=== PATIENT | male | born 1985 | race Caucasian/White ===

== ENCOUNTER 2016-11-17 15:09 | Inpatient (IN) | payer SELFPAY ==
[~2016-11-17] VITALS: Ht 170.2 cm; Wt 66.7 kg
[2016-11-17] MEDS ORDERED: PANTOPRAZOLE SODIUM 40 MG/VIAL IV STA (15:25)
[2016-11-17] MEDS ORDERED: ONDANSETRON HCL 4MG/2ML VIAL IV STA (15:25)
[2016-11-17] MEDS ORDERED: SODIUM CHLORIDE 0.9% 1,000 ML IV ONE ×2 (15:25)
[2016-11-17] MEDS ORDERED: OCTREOTIDE ACETATE 50 MCG/ML 1ML IV ONE (15:30)
[2016-11-17] MEDS ORDERED: PANTOPRAZOLE 80 MG in SODIUM CHLORIDE 0.9% 80 ML IV ONE (15:30)
[2016-11-17] MEDS ORDERED: OCTREOTIDE 1,000 MCG in SODIUM CHLORIDE 0.9% 100 ML IV ONE (15:30)
[2016-11-17] MEDS ORDERED: PANTOPRAZOLE SODIUM 40 MG/VIAL IV ONE (15:56)
[2016-11-17 15:57] LABS: BASOPHILS % 1.9 % (0.0-2.0); HEMATOCRIT. 37.9 % (42.0-52.0); HEMOGLOBIN. 13.3 g/dL (14.0-18.0); LYMPHOCYTES % 50.3 % (20.0-50.0); MEAN CORPUSCULAR HEMOGLOBIN 32.7 pg (28.0-32.0); MEAN CORPUSCULAR VOLUME 93.4 fL (80.0-94.0); MEAN PLATELET VOLUME 8.3 fl (7.4-10.4); MONOCYTES % 8.6 % (2.0-8.0); NEUTROPHILS % 37.2 % (40.0-76.0); PLATELET 295 x1000/uL (130-400); RED BLOOD CELL COUNT 4.06 mill/uL (4.7-6.1); RED CELL DISTRIBUTION WIDTH 14.9 % (11.6-14.6)
[2016-11-17 16:05] LABS: CHLORIDE 104 mEq/L (98-107)
[2016-11-17 16:06] LABS: INR 1.1; PROTHROMBIN TIME 11.7 sec (9.4-11.6)
[2016-11-17 16:09] LABS: CARBON DIOXIDE 23 mEq/L (21-32); ETHANOL BLOOD 282 mg/dL
[2016-11-17 16:14] LABS: CREATINE KINASE 132 IU/L (39-308); TROPONIN I < 0.02 ng/mL (0.00-0.04)
[2016-11-17] MEDS ORDERED: OCTREOTIDE 1000MCG in SODIUM CHLORIDE 0.9% 100ML IV NR (18:30)
[2016-11-17] MEDS ORDERED: MORPHINE SULFATE 4 MG/ML CPJ (NOT FOR IM USE) IV ONE (19:15)
[2016-11-17] MEDS ORDERED: ONDANSETRON HCL 4MG/2ML VIAL IV ONE (19:15)
[2016-11-17] MEDS ORDERED: THIAMINE HCL 100 MG in SODIUM CHLORIDE 0.9% 49 ML IV NR (20:30)
[2016-11-17] MEDS ORDERED: POTASSIUM CHLORIDE INJ 40 MEQ in DEXT 5% WATER 250 ML IV NR (20:30)
[2016-11-17] MEDS ORDERED: ONDANSETRON HCL 4MG/2ML VIAL IV PRN (20:30)
[2016-11-17] MEDS ORDERED: DIPHENHYDRAMINE 50MG/ML VIAL IV PRN (20:30)
[2016-11-17 22:38] VITALS: BP 96/55
[2016-11-17] MEDS: SODIUM CHLORIDE 0.9% 1,000 ML IV SCH (23:26)
[2016-11-17] MEDS: PANTOPRAZOLE SODIUM 40 MG/VIAL IV SCH (23:26)
[2016-11-18] VITALS (8 sets, daily range): BP systolic 84–114; BP diastolic 45–66
[2016-11-18 05:20] LABS: CLARITY URINE CLEAR (CLEAR); COLOR URINE YELLOW (YELLOW); GLUCOSE URINE NEGATIVE (NEGATIVE); KETONES URINE NEGATIVE (NEGATIVE); LEUKOCYTE ESTERASE URINE NEGATIVE (NEGATIVE); NITRITE URINE NEGATIVE (NEGATIVE); OCCULT BLOOD URINE NEGATIVE (NEGATIVE); PROTEIN URINE NEGATIVE (NEGATIVE); UROBILINOGEN URINE 0.2 E.U./dL (0.2-1.0)
[2016-11-18] MEDS: SODIUM CHLORIDE 0.9% 1,000 ML IV SCH ×4 (05:33→23:29)
[2016-11-18 06:28] LABS: *AMPHETAMINES SCREEN URINE NEGATIVE (NEGATIVE); *BARBITURATES SCREEN URINE NEGATIVE (NEGATIVE); *BENZODIAZEPINES SCREEN URINE NEGATIVE (NEGATIVE); *COCAINE SCREEN URINE NEGATIVE (NEGATIVE); CANNABINOID URINE SCREEN NEGATIVE (NEGATIVE); METHADONE URINE SCREEN NEGATIVE (NEGATIVE); OPIATES URINE SCREEN PRESUMTIVE POSITIVE (NEGATIVE); PHENCYCLIDINE URINE SCREEN NEGATIVE (NEGATIVE)
[2016-11-18 07:37] LABS: BASOPHILS % 0.8 % (0.0-2.0); EOSINOPHILS % 1.7 % (0.0-5.0); HEMATOCRIT. 31.2 % (42.0-52.0); HEMOGLOBIN. 10.9 g/dL (14.0-18.0); LYMPHOCYTES % 31.8 % (20.0-50.0); MEAN CORPUSCULAR HEMOGLOBIN 32.9 pg (28.0-32.0); MEAN CORPUSCULAR VOLUME 94.5 fL (80.0-94.0); MEAN PLATELET VOLUME 8.8 fl (7.4-10.4); MONOCYTES % 8.1 % (2.0-8.0); NEUTROPHILS % 57.6 % (40.0-76.0); PLATELET 267 x1000/uL (130-400); RED CELL DISTRIBUTION WIDTH 14.7 % (11.6-14.6)
[2016-11-18 07:40] LABS: CARBON DIOXIDE 24 mEq/L (21-32); CHLORIDE 107 mEq/L (98-107)
[2016-11-18] MEDS: PANTOPRAZOLE SODIUM 40 MG/VIAL IV SCH ×2 (08:15→21:31)
[2016-11-18] MEDS ORDERED: MAGNESIUM 2 G PREMIX 50 ML IV PRN (09:00)
[2016-11-19] VITALS: BP 103/50
[2016-11-19 04:00] VITALS: BP 110/72
[2016-11-19 08:00] VITALS: BP 107/75
[2016-11-19] MEDS: PANTOPRAZOLE SODIUM 40 MG/VIAL IV SCH (08:12)
[2016-11-19] MEDS: SODIUM CHLORIDE 0.9% 1,000 ML IV SCH (08:12)
[2016-11-19 09:20] LABS: BASOPHILS % 1.5 % (0.0-2.0); EOSINOPHILS % 5.8 % (0.0-5.0); HEMATOCRIT. 31.4 % (42.0-52.0); LYMPHOCYTES % 41.3 % (20.0-50.0); MEAN CORPUSCULAR VOLUME 94.1 fL (80.0-94.0); MEAN PLATELET VOLUME 8.6 fl (7.4-10.4); MONOCYTES % 8.9 % (2.0-8.0); NEUTROPHILS % 42.5 % (40.0-76.0); PLATELET 256 x1000/uL (130-400); RED BLOOD CELL COUNT 3.33 mill/uL (4.7-6.1)
[2016-11-19 10:00] LABS: CARBON DIOXIDE 24 mEq/L (21-32); CHLORIDE 104 mEq/L (98-107)
[2016-11-19 16:00] VITALS: BP 117/63
[2016-11-19 16:47] VITALS: BP 117/63
== END 2016-11-19 17:55 | disposition home or self-care (01) | DRG 253 ==
LOC: ER 15:18 → EDBEDREQSVC 17:43 → EDBEDREQ 17:43 → ENRESERV 18:14 → 5WST 22:28
PROVIDERS: ADMIT Internal Medicine; ATTEND Internal Medicine
DX: K92.0 Hematemesis (principal); F10.20 Alcohol dependence, uncomplicated; Z87.11 Personal history of peptic ulcer disease
CPT/HCPCS: 36415; 71010; 80048; 80053; 80305; 81003; 82550; 83735; 83880; 84443; 84484; 85025; 85610; 86850; 86900; 93005; 93970; 96361; 96365; 96367; 96375; 99285; C9113; G0482; J2270; J2354; J2405; J3411; J3475; J3480; J7030; J7050; J7060

== ENCOUNTER 2020-12-30 05:52 | Inpatient (IN) | payer MEDICAID ==
[~2020-12-30] VITALS: Ht 170.2 cm; Wt 60.3 kg
[2020-12-30] MEDS ORDERED: LORAZEPAM 2MG/ML CPJ IV ONE (06:30)
[2020-12-30] MEDS ORDERED: SODIUM CHLORIDE 0.9% 1,000 ML IV ONE ×2 (06:30)
[2020-12-30] MEDS ORDERED: FOLIC ACID 1 MG, THIAMINE HCL 100 MG, MVI, ADULT NO.1 10 ML in DEXTROSE 5% WATER 1,000 ML IV ONE (06:30)
[2020-12-30 06:44] LABS: EOSINOPHILS % 0.7 % (0.0-5.0); HEMATOCRIT. 39.8 % (42.0-52.0); LYMPHOCYTES % 49.9 % (20.0-50.0); MEAN CORPUSCULAR VOLUME 94.5 fL (80.0-94.0); MEAN PLATELET VOLUME 8.5 fl (7.4-10.4); MONOCYTES % 6.4 % (2.0-8.0); PLATELET 317 x1000/uL (130-400); RED BLOOD CELL COUNT 4.21 mill/uL (4.7-6.1); RED CELL DISTRIBUTION WIDTH 13.7 % (11.6-14.6)
[2020-12-30 07:17] LABS: HEMOGLOBIN. 13.9 g/dL (14.0-18.0)
[2020-12-30 07:18] LABS: CHLORIDE 100 mEq/L (98-107)
[2020-12-30 07:23] LABS: ETHANOL BLOOD 41 mg/dL
[2020-12-30 09:35] LABS: *AMPHETAMINES SCREEN URINE NEGATIVE (NEGATIVE); *BARBITURATES SCREEN URINE NEGATIVE (NEGATIVE)
[2020-12-30 09:36] LABS: *BENZODIAZEPINES SCREEN URINE NEGATIVE (NEGATIVE); *COCAINE SCREEN URINE NEGATIVE (NEGATIVE); CANNABINOID URINE SCREEN NEGATIVE (NEGATIVE); METHADONE URINE SCREEN NEGATIVE (NEGATIVE); OPIATES URINE SCREEN NEGATIVE (NEGATIVE); PHENCYCLIDINE URINE SCREEN NEGATIVE (NEGATIVE)
[2020-12-30] MEDS ORDERED: CLONIDINE 0.1MG TABLET PO PRN (13:00)
[2020-12-30] MEDS ORDERED: MAGNESIUM/ALUMINUM HYDROXIDE/SIMETHICONE 30ML UDC PO PRN (13:00)
[2020-12-30] MEDS ORDERED: LORAZEPAM 2MG/ML CPJ IV PRN (13:00)
[2020-12-30] MEDS ORDERED: ACETAMINOPHEN 325MG TABLET PO PRN (13:00)
[2020-12-30] MEDS ORDERED: GUAIFENESIN 200MG/10ML SUGAR FREE UDC PO PRN (13:00)
[2020-12-30] MEDS ORDERED: DOCUSATE SODIUM 100MG CAPSULE PO PRN (13:00)
[2020-12-30] MEDS ORDERED: ONDANSETRON HCL 4MG/2ML INJ IV PRN (13:00)
[2020-12-30] MEDS ORDERED: IPRATROPIUM/ALBUTEROL 0.5-3(2.5)MG/3ML NEB NEB PRN (13:00)
[2020-12-30] MEDS: SODIUM CHLORIDE 0.9% 1,000 ML IV SCH (13:08)
[2020-12-30] MEDS: CHLORDIAZEPOXIDE 25MG CAPSULE PO SCH ×2 (14:26→23:23)
[2020-12-30 14:48] LABS: CREATINE KINASE 218 IU/L (39-308)
[2020-12-30 14:50] LABS: CREATINE KINASE MB FRACTION < 1.0 ng/mL (0.5-3.6)
[2020-12-30 22:10] VITALS: BP 135/87
[2020-12-31] VITALS: BP 126/75
[2020-12-31 00:11] LABS: CREATINE KINASE 163 IU/L (39-308)
[2020-12-31 00:12] LABS: CREATINE KINASE MB FRACTION < 1.0 ng/mL (0.5-3.6)
[2020-12-31 04:00] VITALS: BP 103/62
[2020-12-31 05:51] LABS: BASOPHILS % 1.8 % (0.0-2.0); EOSINOPHILS % 1.4 % (0.0-5.0); HEMATOCRIT. 36.9 % (42.0-52.0); LYMPHOCYTES % 61.5 % (20.0-50.0); MEAN CORPUSCULAR VOLUME 95.7 fL (80.0-94.0); MEAN PLATELET VOLUME 8.9 fl (7.4-10.4); NEUTROPHILS % 30.3 % (40.0-76.0); PLATELET 229 x1000/uL (130-400); RED BLOOD CELL COUNT 3.86 mill/uL (4.7-6.1)
[2020-12-31] MEDS: CHLORDIAZEPOXIDE 25MG CAPSULE PO SCH ×3 (06:51→22:31)
[2020-12-31 07:03] LABS: CHLORIDE 103 mEq/L (98-107)
[2020-12-31 07:10] LABS: LDL CHOLESTEROL 94 mg/dL (5-100)
[2020-12-31 07:12] LABS: HDL CHOLESTEROL 39 mg/dL (40-59)
[2020-12-31 07:34] VITALS: BP 108/65
[2020-12-31 07:35] LABS: HEMOGLOBIN. 13.2 g/dL (14.0-18.0); MEAN CORPUSCULAR HEMOGLOBIN 34.1 pg (28.0-32.0); RED CELL DISTRIBUTION WIDTH 13.7 % (11.6-14.6)
[2020-12-31] MEDS: MULTIVITAMINS,THER W-MINERALS TABLET PO SCH ×2 (08:51→14:15)
[2020-12-31] MEDS: THIAMINE HCL 100MG TABLET PO SCH ×2 (08:51→14:14)
[2020-12-31] MEDS: FOLIC ACID 1MG TABLET PO SCH ×2 (08:51→14:14)
[2020-12-31] MEDS: SODIUM CHLORIDE 0.9% 1,000 ML IV SCH ×4 (08:56→19:00)
[2020-12-31 12:00] VITALS: BP 106/59
[2020-12-31] MEDS ORDERED: FENOFIBRATE NANOCRYSTALLIZED 145MG TABLET PO SCH (13:30)
[2020-12-31 20:00] VITALS: BP 102/50
[2021-01-01] VITALS: BP 107/69
[2021-01-01 04:00] VITALS: BP 109/76
[2021-01-01 06:38] LABS: CHLORIDE 105 mEq/L (98-107)
[2021-01-01 06:45] LABS: BASOPHILS % 0.9 % (0.0-2.0); EOSINOPHILS % 2.5 % (0.0-5.0); HEMATOCRIT. 37.9 % (42.0-52.0); HEMOGLOBIN. 13.4 g/dL (14.0-18.0); LYMPHOCYTES % 46.5 % (20.0-50.0); MEAN CORPUSCULAR HEMOGLOBIN 34.3 pg (28.0-32.0); MEAN CORPUSCULAR VOLUME 97.2 fL (80.0-94.0); MEAN PLATELET VOLUME 9.3 fl (7.4-10.4); MONOCYTES % 6.7 % (2.0-8.0); NEUTROPHILS % 43.4 % (40.0-76.0); PLATELET 209 x1000/uL (130-400); RED CELL DISTRIBUTION WIDTH 14.1 % (11.6-14.6)
[2021-01-01] MEDS: CHLORDIAZEPOXIDE 25MG CAPSULE PO SCH ×2 (06:49→14:00)
[2021-01-01] MEDS: SODIUM CHLORIDE 0.9% 1,000 ML IV SCH ×2 (06:49→15:00)
[2021-01-01 06:57] LABS: FOLIC ACID (FOLATE) SERUM 16.4 ng/mL (>5.38)
[2021-01-01 08:00] VITALS: BP 106/72
[2021-01-01] MEDS: MULTIVITAMINS,THER W-MINERALS TABLET PO SCH (08:38)
[2021-01-01] MEDS: FOLIC ACID 1MG TABLET PO SCH (08:38)
[2021-01-01] MEDS: THIAMINE HCL 100MG TABLET PO SCH (08:39)
[2021-01-01] MEDS ORDERED: THIA100T72 PO (10:00)
[2021-01-01] MEDS ORDERED: L25 PO (10:00)
[2021-01-01] MEDS ORDERED: MULT-230 MT (10:00)
[2021-01-01] MEDS ORDERED: FOLI-43 PO (10:00)
[2021-01-01 12:00] VITALS: BP 104/66
[2021-01-01 16:00] VITALS: BP 108/71
[2021-01-01 18:24] VITALS: BP 118/72
== END 2021-01-01 19:50 | disposition home or self-care (01) ==
LOC: ER 06:00 → 6WST 12:36 → ENRESERV 19:34
PROVIDERS: ADMIT Internal Medicine; ATTEND Internal Medicine
DX: K74.60 Unspecified cirrhosis of liver (principal); F10.131 Alcohol abuse with withdrawal delirium; D53.9 Nutritional anemia, unspecified; K76.0 Fatty (change of) liver, not elsewhere classified; E78.1 Pure hyperglyceridemia; E78.00 Pure hypercholesterolemia, unspecified; F10.129 Alcohol abuse with intoxication, unspecified; I48.91 Unspecified atrial fibrillation; F17.200 Nicotine dependence, unspecified, uncomplicated; Y90.9 Presence of alcohol in blood, level not specified; Z71.41 Alcohol abuse counseling and surveillance of alcoholic
CPT/HCPCS: 36415; 71045; 76700; 80048; 80053; 80061; 80076; 80305; 80320; 82550; 82553; 82607; 82746; 83735; 84478; 84484; 85025; 93005; 97161; 99285; J2060; J3411; J3490; J7030; J7070; G0480

== ENCOUNTER 2021-03-28 06:17 | Emergency (ER) | payer MEDICAID ==
[~2021-03-28] VITALS: Ht 162.6 cm; Wt 62.0 kg
[~2021-03-28 06:17] MED LIST: FOLI-43 PO; L25 PO; MULT-230 MT; THIA100T72 PO
[2021-03-28] MEDS ORDERED: ONDANSETRON HCL 4MG/2ML INJ IV STA (07:05)
[2021-03-28] MEDS ORDERED: SODIUM CHLORIDE 0.9% 1,000 ML IV ONE (07:15)
[2021-03-28 08:13] LABS: BASOPHILS % 1.4 % (0.0-2.0); EOSINOPHILS % 0.7 % (0.0-5.0); HEMATOCRIT. 42.4 % (42.0-52.0); LYMPHOCYTES % 33.3 % (20.0-50.0); MEAN CORPUSCULAR VOLUME 90.5 fL (80.0-94.0); MEAN PLATELET VOLUME 8.6 fl (7.4-10.4); NEUTROPHILS % 56.6 % (40.0-76.0); PLATELET 334 x1000/uL (130-400); RED BLOOD CELL COUNT 4.68 mill/uL (4.7-6.1); RED CELL DISTRIBUTION WIDTH 12.9 % (11.6-14.6)
[2021-03-28 08:18] LABS: CHLORIDE 100 mEq/L (98-107)
[2021-03-28 08:22] LABS: ETHANOL BLOOD 59 mg/dL
[2021-03-28 08:47] LABS: CLARITY URINE CLEAR (CLEAR); COLOR URINE YELLOW (YELLOW); KETONES URINE 1+ (NEGATIVE); LEUKOCYTE ESTERASE URINE NEGATIVE (NEGATIVE); NITRITE URINE NEGATIVE (NEGATIVE); OCCULT BLOOD URINE NEGATIVE (NEGATIVE); PROTEIN URINE NEGATIVE (NEGATIVE); SPECIFIC GRAVITY URINE 1.014 (1.005-1.030); UROBILINOGEN URINE 0.2 E.U./dL (0.2-1.0)
[2021-03-28 09:14] LABS: *AMPHETAMINES SCREEN URINE NEGATIVE (NEGATIVE); *BARBITURATES SCREEN URINE NEGATIVE (NEGATIVE); *BENZODIAZEPINES SCREEN URINE NEGATIVE (NEGATIVE); *COCAINE SCREEN URINE NEGATIVE (NEGATIVE); CANNABINOID URINE SCREEN NEGATIVE (NEGATIVE); METHADONE URINE SCREEN NEGATIVE (NEGATIVE); OPIATES URINE SCREEN NEGATIVE (NEGATIVE); PHENCYCLIDINE URINE SCREEN NEGATIVE (NEGATIVE)
[2021-03-28] MEDS ORDERED: PROT40 MT (10:13)
[2021-03-28] MEDS ORDERED: L25 MT (10:13)
[2021-03-28 11:09] VITALS: BP 142/83
== END 2021-03-28 11:14 | disposition home or self-care (01) ==
LOC: ER 06:17
DX: R07.89 Other chest pain (principal); I10 Essential (primary) hypertension; F10.21 Alcohol dependence, in remission; Z20.822 Contact with and (suspected) exposure to COVID-19
CPT/HCPCS: 36415; 71045; 80053; 80305; 80320; 81003; 83605; 83690; 83880; 84484; 85025; 87426; 93005; 96361; 96374; 99285; J2405; J7030; G0480

== ENCOUNTER 2021-05-01 14:45 | Emergency (ER) | payer MEDICAID ==
[~2021-05-01] VITALS: Ht 170.2 cm; Wt 78.0 kg
[~2021-05-01 14:45] MED LIST changes: +L25 MT; +PROT40 MT
[2021-05-01 14:48] VITALS: BP 140/95
[2021-05-01] MEDS ORDERED: SODIUM CHLORIDE 0.9% 1,000 ML IV ONE (15:00)
[2021-05-01] MEDS ORDERED: ONDANSETRON HCL 4MG/2ML INJ IV STA (15:04)
== END 2021-05-01 16:05 | disposition left against medical advice (07) ==
LOC: ER 14:45
DX: R07.89 Other chest pain (principal)
CPT/HCPCS: 71045; 93005; 99283

== ENCOUNTER 2022-06-17 20:22 | Emergency (ER) | payer MEDICAID ==
[~2022-06-17] VITALS: Ht 167.6 cm; Wt 63.0 kg
[2022-06-17 20:28] VITALS: BP 147/93
[2022-06-18 00:16] LABS: HEMATOCRIT. 39.3 % (42.0-52.0); HEMOGLOBIN. 13.8 g/dL (14.0-18.0); MEAN CORPUSCULAR HEMOGLOBIN 33.3 pg (28.0-32.0); MEAN PLATELET VOLUME 9.7 fl (7.4-10.4); PLATELET 90 x1000/uL (130-400); RED BLOOD CELL COUNT 4.14 mill/uL (4.7-6.1); RED CELL DISTRIBUTION WIDTH 14.1 % (11.6-14.6)
[2022-06-18 00:26] LABS: INR 1.1; PROTHROMBIN TIME 11.9 sec (9.6-11.0)
[2022-06-18 00:56] LABS: CHLORIDE 91 mEq/L (98-107)
[2022-06-18 06:03] LABS: ATYPICAL LYMPHOCYTES 1
[2022-06-18 06:04] LABS: PLATELET ESTIMATE DECREASED
== END 2022-06-18 03:13 | disposition left against medical advice (07) ==
LOC: ER 20:22
DX: Z53.21 Procedure and treatment not carried out due to patient leaving prior to being seen by health care provider (principal)
CPT/HCPCS: 36415; 80053; 82140; 85025; 99281